=== PATIENT | male | born 1945 | race Caucasian/White ===

== ENCOUNTER 2019-10-23 08:28 | Day surgery (SDC) | payer MEDICARE, OTHER ==
[~2019-10-23 08:28] MED LIST: ACETAMINOPHEN 1,000 MG/100 ML BTL IVPB ONE; CEFAZOLIN 2 Gram 2 GM/50 ML BAG IVPB ONE
[2019-10-23] MEDS ORDERED: MIDAZOLAM HCL 2MG/2ML VIAL IV ONE (08:29)
[2019-10-23] MEDS ORDERED: LIDOCAINE 2% MDV (20MG/ML) 20ML VIAL IV ONE (08:29)
[2019-10-23] MEDS ORDERED: FENTANYL PF 100MCG/2ML VIAL IV ONE (08:29)
[2019-10-23] MEDS ORDERED: KETOROLAC 30 MG/ML VIAL IVP ONE (08:29)
[2019-10-23] MEDS ORDERED: SEVOFLURANE 250 ML INH ONE (08:29)
[2019-10-23] MEDS ORDERED: PROPOFOL 10 MG/ML VIAL IV ONE (08:29)
[2019-10-23] MEDS ORDERED: ONDANSETRON HCL IV 4 MG/2 ML VIAL IVP ONE (08:29)
[2019-10-23 08:44] LABS: ABSOLUTE NEUTROPHIL COUNT 4.12; BASO % 0.4 % (0-6); EOS % 3.9 % (0-6); GRAN % 43.3 % (47-80); HEMATOCRIT 42.9 % (42.0-52.0); LYMPH % 43.7 % (16-45); MEAN CELL VOLUME 93.5 fl (81-97); MEAN CORPUSCULAR HEMOGLOBIN 30.5 pg (27-33); MEAN CORPUSCULAR HGB CONC 32.6 g/dl (32-36); MEAN PLATELET VOLUME 9.8 fl (7.4-10.4); MONO % 8.7 % (0-9); PLATELET COUNT 220 K/uL (130-400); RED BLOOD COUNT 4.59 M/uL (4.40-5.70); RED CELL DISTRIBUTION WIDTH 14.6 % (11.5-14.5); WHITE BLOOD COUNT W/O DIFF 9.5 K/uL (4.2-12.2)
[2019-10-23 08:55] LABS: BLOOD UREA NITROGEN 17 mg/dL (8-23); CREATININE 0.9 mg/dL (0.7-1.2); EST GLOMERULAR FILTRATION RATE > 60 mL/min; GLUCOSE,RANDOM 130 mg/dL (74-109)
[2019-10-23] MEDS ORDERED: RINGERS SOLUTION,LACTATED 1,000 ML IV ONE (09:05)
--- NOTE | 2019-10-24 12:39 | Operative Note ---
DATE OF SURGERY: 10/23/2019 SURGEON: Charly Dickson D.O. REFERRING PHYSICIAN: Julito Ellison D.O. PREOPERATIVE DIAGNOSIS: CARPAL TUNNEL SYNDROME OF THE LEFT WRIST. POSTOPERATIVE DIAGNOSIS: CARPAL TUNNEL SYNDROME OF THE LEFT WRIST. OPERATION: DECOMPRESSION LEFT MEDIAN NERVE OF THE WRIST USING 3.5 LOUPE MAGNIFICATION. DESCRIPTION: This 74-year-old male was taken to the Operating Room and placed in the supine position on the operating room table. General anesthesia was induced, the left upper extremity was elevated, prepped with Hibiclens and draped in the usual sterile fashion. It was exsanguinated and the tourniquet was inflated to 250 mmHg. A longitudinal incision was made following the hypothenar crease from the level of the base of the web space of the thumb to the flexor crease of the wrist and dissection was carried down through the skin and subcutaneous tissue. Hemostasis was obtained with the electrocautery. The palmar fascia was divided in line with the skin incision to expose the flexor retinaculum which was punctured and then split to its proximal margin. The contents of the carpal tunnel under direct vision were visualized and the transverse carpal ligament was transected along its ulnar border and the radial flap was raised to expose the entire median nerve under the transverse carpal ligament. The recurrent motor branch of the median nerve was identified and found to be intact. The wound was irrigated with lactated Ringer's solution and the tourniquet released. hemostasis obtained with the electrocautery, the wound closed with interrupted 6-0 nylon suture, sterile dressings applied with plaster splint immobilization with the wrist in slight dorsiflexion and the thumb in an adducted position. The patient was then taken to the Recovery Room in satisfactory condition. GROSS PATHOLOGY: This patient demonstrated a grossly normal appearance of the median nerve in the carpal tunnel other than the very minimal atrophy of the nerve. JOB NUMBER: [id number] [facility]
== END 2019-10-23 12:32 | disposition home or self-care (01) ==
LOC: SUR 08:28
PROVIDERS: ATTEND Orthopaedic Surgery
DX: G56.02 Carpal tunnel syndrome, left upper limb (principal); I10 Essential (primary) hypertension; R01.1 Cardiac murmur, unspecified
CPT/HCPCS: 64721; 64727; 01810; 85025; 80048; J1885; J2405; J3010; J0690; J7120